=== PATIENT | male | born 1975 | race Caucasian/White ===

== ENCOUNTER 2020-09-02 17:07 | Emergency (ER) | payer MEDICARE, OTHER ==
[~2020-09-02 17:07] MED LIST: AUGMENTIN 875-1 EACH PO; BASAGLAR K100 UNIT/1 SQ; CELLCEPT250 MG PO; DOXYCYCLINE HY100 MG PO; FLONASE 0.05% N16 GM; FLORINEF 0.1 M0.1 MG PO; HUMALOG100 UNIT/3 SQ; LANTUS100 UNIT/1 SQ; LORTAB 5-325 M1 EACH PO; NORCO 5-325 TA1 EACH PO; PHENERGAN 12.12.5 M1 PO; PHENERGAN 25 MG25 M1 PO; PHENERGAN 25 MG25 MG PR; PROGRAF1 MG PO; ZYRTEC10 MG PO
[2020-09-02 18:00] LABS: HEMOGLOBIN 11.4 gm/dl (14.0-17.5); RED BLOOD COUNT 4.28 M/UL (4.20-5.50); WHITE BLOOD COUNT 7.4 K/UL (4.5-11.0)
[2020-09-02 19:20] LABS: BUN/CREATININE RATIO 19 (0-10)
[2020-09-02] MEDS ORDERED: ASPIRIN CHEWABL81 MG PO (22:51)
== END 2020-09-02 23:06 | disposition home or self-care (01) ==
LOC: ER1 17:07
PROVIDERS: Physician Assistant
DX: R07.9 Chest pain, unspecified (principal); R06.02 Shortness of breath; E11.22 Type 2 diabetes mellitus with diabetic chronic kidney disease; N18.9 Chronic kidney disease, unspecified; Z94.0 Kidney transplant status
CPT/HCPCS: 36415; 71045; 80053; 82550; 82553; 83874; 84484; 85025; 93005; 99285

== ENCOUNTER 2021-06-05 17:09 | Inpatient (IN) | payer MEDICARE, MEDICAID ==
[~2021-06-05] VITALS: Ht 172.7 cm; Wt 59.0 kg
[~2021-06-05 17:09] MED LIST changes: +ASPIRIN CHEWABL81 MG PO
[2021-06-05 18:03] LABS: HEMOGLOBIN 10.5 gm/dl (14.0-17.5); RED BLOOD COUNT 4.03 M/UL (4.20-5.50); WHITE BLOOD COUNT 9.8 K/UL (4.5-11.0)
[2021-06-05 21:23] LABS: HEMOGLOBIN 10.5 gm/dl (14.0-17.5); RED BLOOD COUNT 3.98 M/UL (4.20-5.50); WHITE BLOOD COUNT 14.5 K/UL (4.5-11.0)
[2021-06-06] MEDS ORDERED: TACROLIMUS1 MG PO ×2 (00:59→12:22)
[2021-06-06] MEDS ORDERED: MIDODRINE HCL5 MG PO (00:59)
[2021-06-06] MEDS ORDERED: PREGABALIN25 MG PO (01:00)
[2021-06-06 02:47] LABS: HEMOGLOBIN 9.7 gm/dl (14.0-17.5); RED BLOOD COUNT 3.7 M/UL (4.20-5.50)
[2021-06-06 03:28] LABS: BUN/CREATININE RATIO 20 (0-10)
[2021-06-06] MEDS ORDERED: HUMALOG100 UNIT/3 SC (12:31)
[2021-06-06] MEDS ORDERED: LANTUS100 UNIT/1 SQ (16:56)
[2021-06-07 07:16] LABS: HEMOGLOBIN 8.8 gm/dl (14.0-17.5); RED BLOOD COUNT 3.37 M/UL (4.20-5.50); WHITE BLOOD COUNT 15.4 K/UL (4.5-11.0)
[2021-06-08 06:31] LABS: HEMOGLOBIN 8.9 gm/dl (14.0-17.5); RED BLOOD COUNT 3.4 M/UL (4.20-5.50); WHITE BLOOD COUNT 10.3 K/UL (4.5-11.0)
[2021-06-09 06:52] LABS: HEMOGLOBIN 10.4 gm/dl (14.0-17.5)
[2021-06-09 06:53] LABS: RED BLOOD COUNT 3.96 M/UL (4.20-5.50); WHITE BLOOD COUNT 4.3 K/UL (4.5-11.0)
[2021-06-10 07:26] LABS: HEMOGLOBIN 9.9 gm/dl (14.0-17.5); RED BLOOD COUNT 3.81 M/UL (4.20-5.50)
[2021-06-10 07:28] LABS: WHITE BLOOD COUNT 6.2 K/UL (4.5-11.0)
[2021-06-11 06:14] LABS: HEMOGLOBIN 10.6 gm/dl (14.0-17.5)
[2021-06-11 06:45] LABS: WHITE BLOOD COUNT 7.8 K/UL (4.5-11.0)
[2021-06-12 07:00] LABS: HEMOGLOBIN 10.3 gm/dl (14.0-17.5); RED BLOOD COUNT 3.85 M/UL (4.20-5.50); WHITE BLOOD COUNT 7.7 K/UL (4.5-11.0)
[2021-06-12] MEDS ORDERED: DECADRON6 MG PO (14:10)
== END 2021-06-12 18:34 | disposition home or self-care (01) | DRG 871 ==
LOC: ER1 17:09 → M/S 23:34 → CDU 23:34 → M/S 06-06 00:40
PROVIDERS: Internal Medicine; Internal Medicine Nephrology; Nurse Practitioner; ADMIT Internal Medicine
PROC: 3E0333Z Introduction of Anti-inflammatory into Peripheral Vein, Percutaneous Approach (ICD-10-PCS; principal; 2021-06-05)
PROC: 8E0ZXY6 Isolation (ICD-10-PCS; 2021-06-05)
PROC: XW033E5 Introduction of Remdesivir Anti-infective into Peripheral Vein, Percutaneous Approach, New Technology Group 5 (ICD-10-PCS; 2021-06-05)
DX: A41.89 Other specified sepsis (principal); U07.1 COVID-19; E43 Unspecified severe protein-calorie malnutrition; J12.82 Pneumonia due to coronavirus disease 2019; J15.9 Unspecified bacterial pneumonia; E87.2 Acidosis; Z94.83 Pancreas transplant status; Z68.1 Body mass index [BMI] 19.9 or less, adult; E87.1 Hypo-osmolality and hyponatremia; N17.9 Acute kidney failure, unspecified; T86.19 Other complication of kidney transplant; D50.0 Iron deficiency anemia secondary to blood loss (chronic); E87.5 Hyperkalemia; N05.8 Unspecified nephritic syndrome with other morphologic changes; K21.9 Gastro-esophageal reflux disease without esophagitis; R13.10 Dysphagia, unspecified; K58.1 Irritable bowel syndrome with constipation; E10.22 Type 1 diabetes mellitus with diabetic chronic kidney disease; N18.30 Chronic kidney disease, stage 3 unspecified; E10.65 Type 1 diabetes mellitus with hyperglycemia; E86.0 Dehydration; K22.2 Esophageal obstruction; Z98.890 Other specified postprocedural states; Z79.899 Other long term (current) drug therapy; Z83.3 Family history of diabetes mellitus; Z79.82 Long term (current) use of aspirin; Z79.4 Long term (current) use of insulin
CPT/HCPCS: 36415; 71045; 80048; 80053; 80197; 82550; 82553; 82728; 82746; 82962; 83540; 83550; 83615; 83735; 83874; 83880; 84100; 84439; 84443; 84484; 85025; 85379; 85610; 86140; 87040; 93005; 96365; 96375; 97116-GP-CQ; 97162; 97166; 97530-GP-CQ; 99285; C9113; G0378; J0696; J0885; J1100; J1644; J1650; J1756; J2020; J2405; J2543; J3370; J7030; J7070; J7507; J7517; Q5106; Q9967; U0002